=== PATIENT | male | born 1995 | race Caucasian/White ===

== ENCOUNTER 2016-11-24 14:53 | Emergency (ER) | payer OTHER ==
[2016-11-24 15:01] VITALS: RESP 18
[2016-11-24] MEDS ORDERED: SODIUM CHLORIDE 0.9% 1,000 ML IV ONE (15:30)
[2016-11-24] MEDS ORDERED: FAMOTIDINE 20 MG/2 ML VIAL IV STA (15:30)
[2016-11-24] MEDS ORDERED: ONDANSETRON 4 MG/2 ML VIAL IVP STA (15:30)
--- NOTE | 2016-11-24 15:32 | ED ---
General Adult HPI - General Chief complaint: Abdominal Pain Stated complaint: vomiting/weakness Time Seen by Provider: 11/24/16 15:13 Source: patient, family, RN notes reviewed, old records reviewed Mode of arrival: ambulatory Limitations: no limitations - History of Present Illness Initial comments: 21-year-old male presenting for epigastric abdominal pain and nausea and vomiting. He states that this is been a recurrent issue for him over the past few years. He states he has a history of hiatal hernia that has been followed by Dr. Nelson in the past. He states he was on omeprazole for few months without any significant improvement of his overall symptoms so he stopped taking this. He has had 2 separate flareups of this epigastric pain as well as the nausea and vomiting. States he is not able to tolerate food over the last couple days. He denies any fevers or chills. Denies any diarrhea. He denies any hematemesis. - Related Data Home Medications Medication Instructions Recorded Confirmed Albuterol Sulfate [Proair Hfa] 2 puff INHALATION RT-Q6H PRN 04/22/14 11/24/16 Lisinopril [Zestril] 10 mg PO DAILY 08/21/15 11/24/16 Mometasone/Formoterol [Dulera 200 2 puff INHALATION RT-TID 03/16/16 11/24/16 Mcg/5 Mcg Inhaler] Omeprazole [PriLOSEC] 20 mg PO AC-BID 03/16/16 11/24/16 Previous Rx's Medication Instructions Recorded Ondansetron [Zofran ODT] 4 mg PO Q8HR PRN #15 tab 11/24/16 Allergies Allergy/AdvReac Type Severity Reaction Status Date / Time No Known Allergies Allergy Verified 11/24/16 15:10 Review of Systems ROS Statement: Those systems with pertinent positive or pertinent negative responses have been documented in the HPI. ROS Other: All systems not noted in ROS Statement are negative. Past Medical History Past Medical History: Asthma, GERD/Reflux, Hypertension Additional Past Medical History / Comment(s): HIATAL HERNIA History of Any Multi-Drug Resistant Organisms: None Reported Past Surgical History: Adenoidectomy Past Anesthesia/Blood Transfusion Reactions: No Reported Reaction Past Psychological History: Anxiety Smoking Status: Never smoker Past Alcohol Use History: None Reported Past Drug Use History: Marijuana Additional Drug Use History / Comment(s): smokes daily General Exam - General Exam Comments Initial Comments: General: Awake and Alert. No acute distress. Does not appear acutely ill. Eyes: CEE, EOM intact. No nystagmus. No scleral icterus. HENT: Atraumatic, normocephalic. Mucous membranes moist. Trachea midline. Neck: The neck is supple, there is no tenderness or JVD. Cardiovascular: Regular rate and rhythm. No murmur, rub, or gallop is appreciated. Distal pulses intact. Respiratory: Lungs are clear to auscultation bilaterally. No wheezes, rales, rhonchi. No respiratory distress. Gastrointestinal: Soft, with mild epigastric tenderness. No rebound or guarding. Non-distended. No masses or organomegaly noted. No CVA tenderness. Musculoskeletal: No tenderness. Normal ROM. No gross deformity. No strength deficits. Neurological: A&Ox3. CN II-XII grossly intact, There are no obvious motor or sensory deficits. Coordination appears grossly intact. Speech is normal. Skin: Skin is warm and dry and no rashes or lesions are noted. Psychiatric: Cooperative, appropriate mood & affect, normal judgment. Limitations: no limitations Course Vital Signs 11/24/16 11/24/16 14:57 16:45 Temperature 97.7 F 98.9 F Pulse Rate 95 77 Respiratory 18 18 Rate Blood Pressure 153/73 140/71 O2 Sat by Pulse 97 96 Oximetry Medical Decision Making - Medical Decision Making 21-year-old male presented for epigastric pain and nausea and vomiting. Patient has history of gastritis. Patient's father Dr. Nelson in the past. Physical exam with mild epigastric tenderness but no evidence of acute peritonitis. Patient was given Zofran and Pepcid for symptomatic management. On reevaluation he states he is feeling improved. Basic lab work shows no significant findings. Discussed reassuring findings here today. Discussed need for close outpatient GI follow-up for further management. Discussed his hiatal hernia and recommend restarting his omeprazole. Was written for Zofran for symptomatic management. Discussed concerning signs and symptoms for immediate return to the ED. Patient is agreeable with plan and discharge home. - Lab Data Result diagrams: 11/24/16 15:25 11/24/16 15:25 Lab Results 11/24/16 11/24/16 Range/Units 15:25 15:25 WBC 9.5 (3.8-10.6) k/uL RBC 5.28 (4.30-5.90) m/uL Hgb 15.6 (13.0-17.5) gm/dL Hct 45.0 (39.0-53.0) % MCV 85.3 (80.0-100.0) fL MCH 29.5 (25.0-35.0) pg MCHC 34.5 (31.0-37.0) g/dL RDW 11.8 (11.5-15.5) % Plt Count 275 (150-450) k/uL Neutrophils % 71 % Lymphocytes % 21 % Monocytes % 7 % Eosinophils % 0 % Basophils % 0 % Neutrophils # 6.7 (1.3-7.7) k/uL Lymphocytes # 2.0 (1.0-4.8) k/uL Monocytes # 0.7 (0-1.0) k/uL Eosinophils # 0.0 (0-0.7) k/uL Basophils # 0.0 (0-0.2) k/uL Sodium 142 (137-145) mmol/L Potassium 4.0 (3.5-5.1) mmol/L Chloride 106 (98-107) mmol/L Carbon Dioxide 22 (22-30) mmol/L Anion Gap 14 mmol/L BUN 13 (9-20) mg/dL Creatinine 0.80 (0.66-1.25) mg/dL Est GFR (MDRD) Af Amer >60 (>60 ml/min/1.73 sqM) Est GFR (MDRD) Non-Af >60 (>60 ml/min/1.73 sqM) Glucose 102 H (74-99) mg/dL Calcium 10.3 H (8.4-10.2) mg/dL Lipase 83 (23-300) U/L Disposition Clinical Impression: Hiatal hernia, Epigastric pain, Nausea and vomiting Disposition: HOME SELF-CARE Condition: Stable Instructions: Abdominal Pain (ED), Hiatal Hernia (ED) Prescriptions: Ondansetron [Zofran ODT] 4 mg PO Q8HR PRN #15 tab PRN Reason: Nausea Referrals: Arron Ga DO [Primary Care Provider] - 1-2 days Marnie Nelson MD [STAFF PHYSICIAN] - 1-2 days Time of Disposition: 16:38
[2016-11-24 15:41] LABS: Basophils % (A) 0 %; CH 30.7; CHCM 36.1; Eosinophils % (A) 0 %; HDW 2.28; HGB 15.6 gm/dL (13.0-17.5); Luc # (Auto) 0.11; Luc % (Auto) 1; Lymphocytes % (A) 21 %; MCH 29.5 pg (25.0-35.0); MCHC 34.5 g/dL (31.0-37.0); MCV 85.3 fL (80.0-100.0); Mean Platelet Volume 7.9; Monocytes # (A) 0.7 k/uL (0-1.0); Monocytes % (A) 7 %; Neutrophils # (A) 6.7 k/uL (1.3-7.7); Neutrophils % (A) 71 %; RBC 5.28 m/uL (4.30-5.90); RDW 11.8 % (11.5-15.5); WBC 9.5 k/uL (3.8-10.6); WBC (Perox) 9.52
[2016-11-24 15:50] LABS: Anion Gap 14 mmol/L; Blood Urea Nitrogen 13 mg/dL (9-20); Calcium 10.3 mg/dL (8.4-10.2); Carbon Dioxide 22 mmol/L (22-30); Chloride 106 mmol/L (98-107); Glucose 102 mg/dL (74-99); Non-African American GFR(MDRD) >60 (>60 ml/min/1.73 sqM); Sodium 142 mmol/L (137-145)
[2016-11-24 16:46] VITALS: BP 140/71; PULSE 77; TEMP 98.9
== END 2016-11-24 16:46 | disposition home or self-care (01) ==
LOC: EC 14:53
DX: K44.9 Diaphragmatic hernia without obstruction or gangrene (principal); R11.2 Nausea with vomiting, unspecified; K21.9 Gastro-esophageal reflux disease without esophagitis; I10 Essential (primary) hypertension; J45.909 Unspecified asthma, uncomplicated; Z87.19 Personal history of other diseases of the digestive system; Z79.899 Other long term (current) drug therapy
CPT/HCPCS: 99284 ×2; 96374 ×2; 96375 ×2; 96361 ×2; 36415; 80048; 83690; 85025; J2405

== ENCOUNTER 2018-02-12 11:52 | Emergency (ER) | payer OTHER ==
[2018-02-12] MEDS ORDERED: PANTOPRAZOLE 40 MG/10 ML VIAL IVP STA (12:16)
[2018-02-12] MEDS ORDERED: ONDANSETRON 4 MG/2 ML VIAL IVP STA (12:16)
[2018-02-12] MEDS ORDERED: SODIUM CHLORIDE 0.9% 1,000 ML IV STA ×2 (12:16)
[2018-02-12] MEDS ORDERED: KETOROLAC 30 MG/ML 1 ML VIAL IVP STA (12:16)
[2018-02-12] MEDS ORDERED: LORazepam 2 MG/ML INJ IV STA (12:17)
[2018-02-12] MEDS ORDERED: MAG HYDROX/AL HYDROX/SIMETH 30 ML, HYOSCYAMINE ELIXIR 10 ML, CIMETIDINE HCL 300 MG PO STA ×3 (12:17)
--- NOTE | 2018-02-12 12:20 | ED ---
Abdominal Pain HPI - General Chief Complaint: Abdominal Pain Stated Complaint: Abd pain, vomiting Time Seen by Provider: 02/12/18 12:10 Source: patient, RN notes reviewed, old records reviewed Mode of arrival: ambulatory Limitations: no limitations - History of Present Illness Initial Comments: This patient is a 22-year-old male presents emergency Department chief complaint of anxiety and epigastric abdominal pain nausea and vomiting. Patient reports that his symptoms started 3 more frequently for the past week. He's had multiple days of a few episodes of vomiting. Patient reports this morning 7 AM on he was at work he started to have worsening nausea vomiting and then having abdominal pain. He seen his GI specialist. He has history of a hiatal hernia. He takes omeprazole daily. He also was prescribed an anxiety pill reports that that seems like it's on helping at this time either. He reports that he did not take any nausea medicine. He reports he's had normal bowel and no blood. No medical emesis. Normal bowel movements today. Normal urination. - Related Data Home Medications Medication Instructions Recorded Confirmed Albuterol Sulfate [Proair Hfa] 2 puff INHALATION RT-Q6H PRN 04/22/14 02/12/18 Lisinopril [Zestril] 10 mg PO DAILY 08/21/15 02/12/18 Mometasone/Formoterol [Dulera 200 2 puff INHALATION RT-BID 03/16/16 02/12/18 Mcg/5 Mcg Inhaler] Omeprazole [PriLOSEC] 20 mg PO DAILY 03/16/16 02/12/18 Amitriptyline HCl [Elavil] 25 mg PO HS 02/12/18 02/12/18 Previous Rx's Medication Instructions Recorded Ondansetron Odt [Zofran Odt] 4 mg PO Q8HR PRN #12 tab 02/12/18 Allergies Allergy/AdvReac Type Severity Reaction Status Date / Time No Known Allergies Allergy Verified 02/12/18 13:40 Review of Systems ROS Statement: Those systems with pertinent positive or pertinent negative responses have been documented in the HPI. ROS Other: All systems not noted in ROS Statement are negative. Past Medical History Past Medical History: Asthma, GERD/Reflux, Hypertension Additional Past Medical History / Comment(s): HIATAL HERNIA History of Any Multi-Drug Resistant Organisms: None Reported Past Surgical History: Adenoidectomy Additional Past Surgical History / Comment(s): testicular surg Past Anesthesia/Blood Transfusion Reactions: No Reported Reaction Past Psychological History: Anxiety Smoking Status: Never smoker Past Alcohol Use History: None Reported Past Drug Use History: Marijuana General Exam - General Exam Comments Initial Comments: This patient is a 22-year-old male. No acute distress. Patient does appear very anxious. Limitations: no limitations General appearance: alert, in no apparent distress, anxious Head exam: Present: atraumatic, normocephalic, normal inspection Eye exam: Present: normal appearance, PERRL, EOMI. Absent: scleral icterus, conjunctival injection, periorbital swelling ENT exam: Present: normal exam, mucous membranes moist Neck exam: Present: normal inspection. Absent: tenderness, meningismus, lymphadenopathy Respiratory exam: Present: normal lung sounds bilaterally. Absent: respiratory distress, wheezes, rales, rhonchi, stridor Cardiovascular Exam: Present: regular rate, normal rhythm, normal heart sounds. Absent: systolic murmur, diastolic murmur, rubs, gallop, clicks GI/Abdominal exam: Present: soft, tenderness (Epigastric left upper quadrant tenderness.), normal bowel sounds. Absent: distended, guarding, rebound, rigid Extremities exam: Present: normal inspection, full ROM, normal capillary refill. Absent: tenderness, pedal edema, joint swelling, calf tenderness Back exam: Present: normal inspection Neurological exam: Present: alert, oriented X3, CN II-XII intact Psychiatric exam: Present: normal affect, normal mood Skin exam: Present: warm, dry, intact, normal color. Absent: rash Course Vital Signs 02/12/18 11:58 Temperature 97.9 F Pulse Rate 84 Respiratory 18 Rate Blood Pressure 147/92 O2 Sat by Pulse 97 Oximetry - Reevaluation(s) Reevaluation #1: 02/12/18 13:57 Patient was reevaluated and resting comfortably in bed. He reports feeling better. Patient labwork was reviewed and told him that it was negative. X- rays reviewed and normal as well. Medical Decision Making - Medical Decision Making This patient is 22-year-old male with history of anxiety presents today with episodes of vomiting. He reports his been vomiting episodes for the past week. He did some epigastric tenderness. Patient's given IV fluids labwork obtained. He does appear very anxious. Given In 1 mg of Ativan. He is given GI cocktail and Protonix as well. X-ray was normal. Lab work was all normal. Discussed he needs to continue his omeprazole. I'll write the patient for Zofran for nausea. Discussed that he should follow-up with his primary care provider and GI specialist visitors symptoms are continuing to persist. Discussed me she hasn't clear liquid diet for the next 2 days. All questions answered return parameters were discussed. - Lab Data Result diagrams: 02/12/18 12:20 02/12/18 12:20 Lab Results 02/12/18 02/12/18 02/12/18 Range/Units 12:20 12:20 13:16 WBC 9.1 (3.8-10.6) k/uL RBC 5.42 (4.30-5.90) m/uL Hgb 15.9 (13.0-17.5) gm/dL Hct 44.2 (39.0-53.0) % MCV 81.5 (80.0-100.0) fL MCH 29.3 (25.0-35.0) pg MCHC 35.9 (31.0-37.0) g/dL RDW 12.1 (11.5-15.5) % Plt Count 297 (150-450) k/uL Neutrophils % 71 % Lymphocytes % 23 % Monocytes % 4 % Eosinophils % 0 % Basophils % 1 % Neutrophils # 6.4 (1.3-7.7) k/uL Lymphocytes # 2.1 (1.0-4.8) k/uL Monocytes # 0.4 (0-1.0) k/uL Eosinophils # 0.0 (0-0.7) k/uL Basophils # 0.0 (0-0.2) k/uL Sodium 144 (137-145) mmol/L Potassium 4.1 (3.5-5.1) mmol/L Chloride 106 (98-107) mmol/L Carbon Dioxide 19 L (22-30) mmol/L Anion Gap 19 mmol/L BUN 13 (9-20) mg/dL Creatinine 0.80 (0.66-1.25) mg/dL Est GFR (CKD-EPI)AfAm >90 (>60 ml/min/1.73 sqM) Est GFR (CKD-EPI)NonAf >90 (>60 ml/min/1.73 sqM) Glucose 116 H (74-99) mg/dL Calcium 11.1 H (8.4-10.2) mg/dL Total Bilirubin 0.9 (0.2-1.3) mg/dL AST 21 (17-59) U/L ALT 26 (21-72) U/L Alkaline Phosphatase 71 (38-126) U/L Total Protein 8.4 H (6.3-8.2) g/dL Albumin 5.1 H (3.5-5.0) g/dL Amylase 54 (30-110) U/L Lipase 106 (23-300) U/L Urine Color Yellow Urine Appearance Clear (Clear) Urine pH 7.5 (5.0-8.0) Ur Specific [place] 1.025 (1.001-1.035) Urine Protein Trace H (Negative) Urine Glucose (UA) Negative (Negative) Urine Ketones 3+ H (Negative) Urine Blood Negative (Negative) Urine Nitrite Negative (Negative) Urine Bilirubin Negative (Negative) Urine Urobilinogen <2.0 (<2.0) mg/dL Ur Leukocyte Esterase Negative (Negative) - Radiology Data Radiology results: report reviewed X-rays nonspecific abdomen. Disposition Clinical Impression: Gastritis, Nausea and vomiting Disposition: HOME SELF-CARE Condition: Good Instructions: Acute Nausea and Vomiting (ED) Additional Instructions: Patient advised to have a clear liquid diet for the next 2 days. Increase her fluid intake. Be sure that you follow-up with primary care provider and GI specialist. He is a nausea medicine every 8 hours as needed. Return to the emergency department if any alarming signs or symptoms occur. Prescriptions: Ondansetron Odt [Zofran Odt] 4 mg PO Q8HR PRN #12 tab PRN Reason: Nausea Referrals: Arron Ga DO [Primary Care Provider] - 1-2 days Time of Disposition: 13:58
[2018-02-12 12:36] LABS: Basophils % (A) 1 %; Eosinophils % (A) 0 %; HCT 44.2 % (39.0-53.0); HGB 15.9 gm/dL (13.0-17.5); Lymphocytes # (A) 2.1 k/uL (1.0-4.8); Lymphocytes % (A) 23 %; MCH 29.3 pg (25.0-35.0); MCHC 35.9 g/dL (31.0-37.0); MCV 81.5 fL (80.0-100.0); Mean Platelet Volume 7.2; Monocytes # (A) 0.4 k/uL (0-1.0); Monocytes % (A) 4 %; Neutrophils # (A) 6.4 k/uL (1.3-7.7); Neutrophils % (A) 71 %; Platelet Count 297 k/uL (150-450); RBC 5.42 m/uL (4.30-5.90); RDW 12.1 % (11.5-15.5); WBC 9.1 k/uL (3.8-10.6)
[2018-02-12 12:46] LABS: ALT 26 U/L (21-72); AST 21 U/L (17-59); Albumin 5.1 g/dL (3.5-5.0); Alkaline Phosphatase 71 U/L (38-126); Amylase 54 U/L (30-110); Anion Gap 19 mmol/L; Blood Urea Nitrogen 13 mg/dL (9-20); Calcium 11.1 mg/dL (8.4-10.2); Carbon Dioxide 19 mmol/L (22-30); Chloride 106 mmol/L (98-107); Glucose 116 mg/dL (74-99); Lipase 106 U/L (23-300); Potassium 4.1 mmol/L (3.5-5.1); Sodium 144 mmol/L (137-145); Total Bilirubin 0.9 mg/dL (0.2-1.3); Total Protein 8.4 g/dL (6.3-8.2)
--- NOTE | 2018-02-12 13:01 | XR ---
EXAMINATION TYPE: XR KUB DATE OF EXAM: 02/12/2018 COMPARISON: NONE HISTORY: Nausea and vomiting TECHNIQUE: One view abdominal series FINDINGS: The osseous structures are intact. The bowel gas pattern is nonspecific. Lung bases are clear. Sugg estion of a spina bifida occulta at the lumbosacral junction. IMPRESSION: 1. Nonspecific abdomen.
[2018-02-12 13:31] LABS: Appearance,Urine Clear (Clear); Bilirubin,Urine Negative (Negative); Blood,Urine Negative (Negative); Color,Urine Yellow; Glucose,Urine (UA) Negative (Negative); Ketones,Urine 3+ (Negative); Leukocyte Esterase,Urine Negative (Negative); Nitrite,Urine Negative (Negative); PH, Urine 7.5 (5.0-8.0); Protein,Urine Trace (Negative); Specific Gravity,Urine 1.025 (1.001-1.035); Urobilinogen,Urine <2.0 mg/dL (<2.0)
[2018-02-12 14:11] VITALS: BP 152/83; PULSE 85; RESP 16; TEMP 98.4
== END 2018-02-12 14:12 | disposition home or self-care (01) ==
LOC: EC 11:52
DX: K29.70 Gastritis, unspecified, without bleeding (principal); F41.9 Anxiety disorder, unspecified; K21.9 Gastro-esophageal reflux disease without esophagitis; J45.909 Unspecified asthma, uncomplicated; I10 Essential (primary) hypertension; Z79.51 Long term (current) use of inhaled steroids; Z79.899 Other long term (current) drug therapy
CPT/HCPCS: 99284; 96374; 96375 ×3; 96361; 36415; 80053; 82150; 83690; 85025; 81003; 74018; J2060; J2405; J1885; C9113

== ENCOUNTER 2020-04-22 14:11 | Emergency (ER) | payer OTHER ==
[2020-04-22] MEDS ORDERED: MAG HYDROX/AL HYDROX/SIMETH 30 ML, HYOSCYAMINE ELIXIR 10 ML, LIDOCAINE VISCOUS 2% 10 ML PO STA ×3 (14:45)
[2020-04-22] MEDS ORDERED: ONDANSETRON 4 MG/2 ML VIAL IVP STA (14:45)
[2020-04-22] MEDS ORDERED: SODIUM CHLORIDE 0.9% 1,000 ML IV STA (14:45)
[2020-04-22] MEDS ORDERED: PANTOPRAZOLE 40 MG/10 ML VIAL IVP STA (14:45)
--- NOTE | 2020-04-22 14:49 | ED ---
Abdominal Pain HPI - General Chief Complaint: Abdominal Pain Stated Complaint: Dizziness Time Seen by Provider: 04/22/20 14:35 Source: patient Mode of arrival: ambulatory Limitations: no limitations - History of Present Illness Initial Comments: Patient is a 24-year-old male presenting to the emergency Department with complaints of abdominal pain, nausea, diarrhea 4 days. Patient states he noticed nausea and diarrhea first and then started having upper abdominal cramping throughout the last few days. Patient states he has a history of GI issues and has been seeing Dr. Nelson for it. Patient states they think it may be related to stress and/or acid reflux. He used to take medication but no longer does. Patient states he has not been able to eat or drink much today and then started feeling lightheaded when he was outside today. He denies any vomiting episodes, just a lot of nausea and limited appetite. Patient also started new job tomorrow outside. Patient denies any recent fever, chills, chest pain, shortness of breath. He denies any dysuria. He states his urine has been darker than normal. He denies any further complaints at this time. Upon arrival to the ER, his vital signs are stable. - Related Data Home Medications Medication Instructions Recorded Confirmed Albuterol Sulfate [Proair Hfa] 2 puff INHALATION RT-Q6H PRN 04/22/14 04/22/20 Previous Rx's Medication Instructions Recorded Lisinopril [Zestril] 10 mg PO DAILY 30 Days #30 tab 04/22/20 Omeprazole [PriLOSEC] 20 mg PO AC-BRKFST 30 Days #30 cap 04/22/20 Ondansetron Odt [Zofran Odt] 4 mg PO Q8HR PRN #10 tab 04/22/20 Allergies Allergy/AdvReac Type Severity Reaction Status Date / Time No Known Allergies Allergy Verified 04/23/20 20:22 Review of Systems ROS Statement: Those systems with pertinent positive or pertinent negative responses have been documented in the HPI. ROS Other: All systems not noted in ROS Statement are negative. Past Medical History Past Medical History: Asthma, GERD/Reflux, Hypertension Additional Past Medical History / Comment(s): HIATAL HERNIA, History of Any Multi-Drug Resistant Organisms: None Reported Past Surgical History: Adenoidectomy Additional Past Surgical History / Comment(s): testicular surg Past Anesthesia/Blood Transfusion Reactions: No Reported Reaction Past Psychological History: Anxiety Smoking Status: Never smoker Past Alcohol Use History: None Reported Past Drug Use History: Marijuana General Exam - General Exam Comments Initial Comments: GENERAL: Well-appearing, well-nourished and in no acute distress. HEAD: Atraumatic, normocephalic. EYES: Pupils equal round and reactive to light, extraocular movements intact, sclera anicteric, conjunctiva are normal. ENT: TMs normal, nares patent, oropharynx clear without exudates. Moist mucous membranes. NECK: Normal range of motion, supple without lymphadenopathy or JVD. LUNGS: Breath sounds clear to auscultation bilaterally and equal. No wheezes rales or rhonchi. HEART: Regular rate and rhythm without murmurs, rubs or gallops. ABDOMEN: Pain with palpation epigastric area. Soft, normoactive bowel sounds. No guarding, no rebound. No masses appreciated. : Deferred EXTREMITIES: Normal range of motion, no pitting or edema. No clubbing or cyanosis. NEUROLOGICAL: Cranial nerves II through XII grossly intact. Normal speech, normal gait. PSYCH: Normal mood, normal affect. SKIN: Warm, Dry, normal turgor, no rashes or lesions noted. Limitations: no limitations Course Vital Signs 04/22/20 04/22/20 14:30 17:37 Temperature 98.9 F 98.3 F Pulse Rate 86 103 H Respiratory 18 17 Rate Blood Pressure 185/122 169/113 O2 Sat by Pulse 98 99 Oximetry Medical Decision Making - Medical Decision Making Patient is a 24-year-old male complaining of nausea, diarrhea, upper abdominal cramping 4 days. He does have a history of acid reflex and sees Dr. Nelson for this. Vitals are stable upon arrival. Pain with palpation of the epigastric area. Labs show no acute abnormalities, lactic acid is normal. KUB shows no acute process. Patient was given fluids, Protonix, Toradol, Zofran, GI cocktail reports improvement in symptoms. I discussed with patient his symptoms, also be related to anxiety. Patient is agreement with this plan of care. He will follow up with his GI doctor. Patient did have elevated blood pressure in the ER. He states he used to be on medication but stopped taking it 2 months ago. I did refill his prescription for lisinopril, as well as omeprazole and Zofran. Patient states he will start taking this medication and follow-up with his PCP. He is stable for discharge. Return parameters were discussed with the patient and he verbalized understanding. Case discussed with Dr. Wilhelm. - Lab Data Result diagrams: 04/22/20 15:00 04/22/20 15:00 Lab Results 04/22/20 04/22/20 04/22/20 Range/Units 15:00 15:00 15:00 WBC 8.1 (3.8-10.6) k/uL RBC 5.83 (4.30-5.90) m/uL Hgb 17.1 (13.0-17.5) gm/dL Hct 51.1 (39.0-53.0) % MCV 87.6 (80.0-100.0) fL MCH 29.3 (25.0-35.0) pg MCHC 33.5 (31.0-37.0) g/dL RDW 11.9 (11.5-15.5) % Plt Count 272 (150-450) k/uL Neutrophils % 53 % Lymphocytes % 36 % Monocytes % 7 % Eosinophils % 1 % Basophils % 1 % Neutrophils # 4.3 (1.3-7.7) k/uL Lymphocytes # 2.9 (1.0-4.8) k/uL Monocytes # 0.5 (0-1.0) k/uL Eosinophils # 0.1 (0-0.7) k/uL Basophils # 0.1 (0-0.2) k/uL Sodium 140 (137-145) mmol/L Potassium 4.3 (3.5-5.1) mmol/L Chloride 106 (98-107) mmol/L Carbon Dioxide 23 (22-30) mmol/L Anion Gap 11 mmol/L BUN 16 (9-20) mg/dL Creatinine 0.85 (0.66-1.25) mg/dL Est GFR (CKD-EPI)AfAm >90 (>60 ml/min/1.73 sqM) Est GFR (CKD-EPI)NonAf >90 (>60 ml/min/1.73 sqM) Glucose 99 (74-99) mg/dL Plasma Lactic Acid [place] 1.3 (0.7-2.0) mmol/L Calcium 10.3 H (8.4-10.2) mg/dL Total Bilirubin 0.9 (0.2-1.3) mg/dL AST 24 (17-59) U/L ALT 22 (4-49) U/L Alkaline Phosphatase 68 (38-126) U/L Total Protein 8.4 H (6.3-8.2) g/dL Albumin 5.0 (3.5-5.0) g/dL Disposition Clinical Impression: Abdominal pain, Dehydration Disposition: HOME SELF-CARE Condition: Stable Instructions (If sedation given, give patient instructions): Abdominal Pain (ED) Additional Instructions: Please return to the Emergency Department if symptoms worsen or any other concerns. Follow-up with Dr. Nelson, as discussed. Trial of omeprazole as well as Zofran. Prescriptions: Omeprazole [PriLOSEC] 20 mg PO AC-BRKFST 30 Days #30 cap Lisinopril [Zestril] 10 mg PO DAILY 30 Days #30 tab Ondansetron Odt [Zofran Odt] 4 mg PO Q8HR PRN #10 tab PRN Reason: Nausea Is patient prescribed a controlled substance at d/c from ED?: No Referrals: Arron Ga DO [Primary Care Provider] - 1-2 days Marnie Nelson MD [STAFF PHYSICIAN] - 1-2 days
[2020-04-22 15:16] LABS: Basophils # (A) 0.1 k/uL (0-0.2); Basophils % (A) 1 %; Eosinophils # (A) 0.1 k/uL (0-0.7); Eosinophils % (A) 1 %; HCT 51.1 % (39.0-53.0); HGB 17.1 gm/dL (13.0-17.5); Lymphocytes # (A) 2.9 k/uL (1.0-4.8); Lymphocytes % (A) 36 %; MCH 29.3 pg (25.0-35.0); MCHC 33.5 g/dL (31.0-37.0); MCV 87.6 fL (80.0-100.0); Mean Platelet Volume 7.6; Monocytes # (A) 0.5 k/uL (0-1.0); Monocytes % (A) 7 %; Neutrophils # (A) 4.3 k/uL (1.3-7.7); Neutrophils % (A) 53 %; Platelet Count 272 k/uL (150-450); RBC 5.83 m/uL (4.30-5.90); RDW 11.9 % (11.5-15.5); WBC 8.1 k/uL (3.8-10.6)
[2020-04-22 15:22] LABS: Potassium 4.3 mmol/L (3.5-5.1)
[2020-04-22 15:23] LABS: ALT 22 U/L (4-49); AST 24 U/L (17-59); African American GFR (CKD) >90 (>60 ml/min/1.73 sqM); Alkaline Phosphatase 68 U/L (38-126); Anion Gap 11 mmol/L; Blood Urea Nitrogen 16 mg/dL (9-20); Calcium 10.3 mg/dL (8.4-10.2); Carbon Dioxide 23 mmol/L (22-30); Chloride 106 mmol/L (98-107); Glucose 99 mg/dL (74-99); Non-African American GFR(CKD) >90 (>60 ml/min/1.73 sqM); Sodium 140 mmol/L (137-145); Total Bilirubin 0.9 mg/dL (0.2-1.3); Total Protein 8.4 g/dL (6.3-8.2)
--- NOTE | 2020-04-22 15:38 | XR ---
KUB HISTORY: Right-sided abdominal pain, dizziness and diarrhea KUB submitted and correlated prior KUB 02/12/2018 Lung bases are clear. There is no evident bowel obstruction or pneumoperitoneum. No pathologic calcif ication. Bones show a similar appearance. IMPRESSION: Nonobstructive bowel gas pattern.
[2020-04-22] MEDS ORDERED: KETOROLAC 30 MG/ML 1 ML VIAL IVP STA (16:00)
[2020-04-22 17:37] VITALS: BP 169/113; PULSE 103; RESP 17; TEMP 98.3
== END 2020-04-22 17:51 | disposition home or self-care (01) ==
LOC: EC 14:11
DX: E86.0 Dehydration (principal); R10.9 Unspecified abdominal pain; R11.0 Nausea; J45.909 Unspecified asthma, uncomplicated
CPT/HCPCS: 36415; 80053; 83605; 85025; 74018; 99284; 96374; 96375 ×2; 96361; J2405; J1885; C9113

== ENCOUNTER 2020-04-23 20:15 | Emergency (ER) | payer OTHER ==
[2020-04-23 20:22] VITALS: TEMP 98.7
[2020-04-23] MEDS ORDERED: LORazepam 2 MG/ML INJ IM STA (20:55)
--- NOTE | 2020-04-23 20:59 | ED ---
Recheck HPI - General Chief Complaint: Recheck/Abnormal Lab/Rx Stated Complaint: High BP Time Seen by Provider: 04/23/20 20:24 Source: patient Mode of arrival: ambulatory Limitations: no limitations - History of Present Illness Initial Comments: Patient is a 24-year-old male presenting to the emergency Department with complaints of elevated blood pressure. Patient was in the ER yesterday for complaints of dizziness and was found to have elevated blood pressure. He states he stopped taking his blood pressure medications approximately 2 months ago. Patient was given a prescription for lisinopril yesterday and did start taking it today. Patient states he also has a history of anxiety and noticed that it has been increasing over the past month. He states he has been stressing about his job and also this new job that he wants to start. Patient states he lost his father approximately one year ago and has been battling anxiety and depression. Patient denies any suicide or homicidal thoughts. He denies having headache, chest pain, shortness of breath. He denies any recent fever or chills. He has no further complaints at this time. Upon arrival to the ER, patient's blood pressure is 184/75, pulse is 108, rest of vitals normal. - Related Data Home Medications Medication Instructions Recorded Confirmed Albuterol Sulfate [Proair Hfa] 2 puff INHALATION RT-Q6H PRN 04/22/14 04/22/20 Previous Rx's Medication Instructions Recorded Lisinopril [Zestril] 10 mg PO DAILY 30 Days #30 tab 04/22/20 Omeprazole [PriLOSEC] 20 mg PO AC-BRKFST 30 Days #30 cap 04/22/20 Ondansetron Odt [Zofran Odt] 4 mg PO Q8HR PRN #10 tab 04/22/20 Allergies Allergy/AdvReac Type Severity Reaction Status Date / Time No Known Allergies Allergy Verified 04/23/20 20:22 Review of Systems ROS Statement: Those systems with pertinent positive or pertinent negative responses have been documented in the HPI. ROS Other: All systems not noted in ROS Statement are negative. Past Medical History Past Medical History: Asthma, GERD/Reflux, Hypertension Additional Past Medical History / Comment(s): HIATAL HERNIA, History of Any Multi-Drug Resistant Organisms: None Reported Past Surgical History: Adenoidectomy Additional Past Surgical History / Comment(s): testicular surg Past Anesthesia/Blood Transfusion Reactions: No Reported Reaction Past Psychological History: Anxiety Smoking Status: Never smoker Past Alcohol Use History: None Reported Past Drug Use History: Marijuana General Exam - General Exam Comments Initial Comments: GENERAL: Well-appearing, well-nourished and in no acute distress. Patient appears anx ious. HEAD: Atraumatic, normocephalic. EYES: Pupils equal round and reactive to light, extraocular movements intact, sclera anicteric, conjunctiva are normal. ENT: TMs normal, nares patent, oropharynx clear without exudates. Moist mucous membranes. NECK: Normal range of motion, supple without lymphadenopathy or JVD. LUNGS: Breath sounds clear to auscultation bilaterally and equal. No wheezes rales or rhonchi. HEART: Regular rate and rhythm without murmurs, rubs or gallops. ABDOMEN: Soft, nontender, normoactive bowel sounds. No guarding, no rebound. No masses appreciated. : Deferred EXTREMITIES: Normal range of motion, no pitting or edema. No clubbing or cyanosis. NEUROLOGICAL: Cranial nerves II through XII grossly intact. Normal speech, normal gait. PSYCH: Normal mood, normal affect, anxious. SKIN: Warm, Dry, normal turgor, no rashes or lesions noted. Limitations: no limitations Course Vital Signs 04/23/20 04/23/20 04/23/20 20:18 21:40 22:11 Temperature 98.7 F Pulse Rate 108 H 88 88 Respiratory 18 18 16 Rate Blood Pressure 184/75 167/103 157/100 O2 Sat by Pulse 99 98 98 Oximetry 04/23/20 04/23/20 23:00 23:23 Temperature 98.7 F Pulse Rate 88 88 Respiratory 16 16 Rate Blood Pressure 163/103 163/103 O2 Sat by Pulse 97 97 Oximetry Medical Decision Making - Medical Decision Making Patient is a 24-year-old male presenting with hypertension, anxiety. He denies any suicidal or homicidal thoughts. He used to be on lisinopril and stopped taking it 2 months ago. Patient was in yesterday for dizziness and I did give him a prescription to restart his lisinopril. He was supposed to follow up with his PCP. Patient presented today because he took his blood pressure at home and it was still high and then started having anxiety from this. Patient's exam today is unremarkable. Patient denies having headache, chest pain, shortness of breath, blurry vision. Patient was given 1 g of Ativan as well as clindamycin in the ER. Patient's blood pressure did improve. He was also given information on counselors. He is stable for discharge at this time. He has remained asymptomatic in the ER. He will follow up with his PCP in 1-3 days. He will continue with his BP medications. Patient is agreeable with this plan of care. Return parameters were discussed with the patient and he verbalized understanding. Disposition Clinical Impression: Hypertension, Anxiety Disposition: HOME SELF-CARE Condition: Stable Instructions (If sedation given, give patient instructions): Hypertension (ED) Additional Instructions: Please return to the Emergency Department if symptoms worsen or any other concerns. Take medications as prescribed. Follow-up with PCP. Is patient prescribed a controlled substance at d/c from ED?: No Referrals: Arron Ga DO [Primary Care Provider] - 1-2 days
[2020-04-23 21:40] VITALS: PULSE 88
[2020-04-23 22:11] VITALS: RESP 16
[2020-04-23] MEDS ORDERED: cloNIDine HCL 0.1 MG TAB PO STA (22:17)
[2020-04-23 23:01] VITALS: BP 163/103
== END 2020-04-23 23:24 | disposition home or self-care (01) ==
LOC: EC 20:15
DX: I10 Essential (primary) hypertension (principal); F41.9 Anxiety disorder, unspecified; F43.9 Reaction to severe stress, unspecified; J45.909 Unspecified asthma, uncomplicated; Z79.899 Other long term (current) drug therapy
CPT/HCPCS: 99283; 96372; J2060

== ENCOUNTER 2021-01-20 07:01 | Observation (INO) | payer BC, OTHER ==
[2021-01-20] MEDS ORDERED: ONDANSETRON 4 MG/2 ML VIAL IVP STA (07:36)
[2021-01-20] MEDS ORDERED: SODIUM CHLORIDE 0.9% 1,000 ML IV STA (07:36)
[2021-01-20] MEDS ORDERED: FAMOTIDINE 20 MG/2 ML VIAL IV STA (07:37)
[2021-01-20] MEDS ORDERED: diphenhydrAMINE 50 MG/ML 1 ML VIAL IVP STA (07:37)
[2021-01-20 08:18] LABS: Basophils % (A) 0 %; Eosinophils # (A) 0.1 k/uL (0-0.7); Eosinophils % (A) 1 %; HCT 45.7 % (39.0-53.0); HGB 15.7 gm/dL (13.0-17.5); Lymphocytes # (A) 1.9 k/uL (1.0-4.8); Lymphocytes % (A) 12 %; MCHC 34.4 g/dL (31.0-37.0); MCV 87.2 fL (80.0-100.0); Monocytes % (A) 6 %; Neutrophils # (A) 12.3 k/uL (1.3-7.7); Neutrophils % (A) 80 %; Platelet Count 263 k/uL (150-450); RBC 5.24 m/uL (4.30-5.90); WBC 15.4 k/uL (3.8-10.6)
--- NOTE | 2021-01-20 08:19 | ED ---
Nausea/Vomiting/Diarrhea HPI - General Chief complaint: Nausea/Vomiting/Diarrhea Stated complaint: nausea, SOB, dizziness Time Seen by Provider: 01/20/21 07:13 Source: patient Mode of arrival: ambulatory Limitations: no limitations - History of Present Illness Initial comments: 25-year-old male patient presents to the emergency department today for evalu ation of nausea, vomiting, fever. Patient has been sick since Monday. Unable to keep down any food or fluids for the last 24 hours. Patient reports streaking of blood in one episode of vomiting today. States temperature was as high as 102F on Monday. Last bowel movement was yesterday. Has not taken any medication for his symptoms. Denies history of abdominal surgery. Patient has had issues with nausea and vomiting in the past and is awaiting appointment for upper GI and colonoscopy. Denies any recent travel or sick contacts. Patient denies any recent rash, cough, shortness of breath, chest pain, back pain, numbness, tingling, dizziness, weakness, hematuria, dysuria, urinary urgency, urinary frequency, headache, visual changes, or any other complaints. - Related Data Home Medications Medication Instructions Recorded Confirmed Sertraline [Zoloft] 100 mg PO DAILY 01/20/21 01/20/21 hydrOXYzine HCL 25 mg PO TID PRN 01/20/21 01/20/21 lisinopriL 40 mg PO DAILY 01/20/21 01/20/21 Allergies Allergy/AdvReac Type Severity Reaction Status Date / Time No Known Allergies Allergy Verified 01/20/21 08:36 Review of Systems ROS Statement: Those systems with pertinent positive or pertinent negative responses have been documented in the HPI. ROS Other: All systems not noted in ROS Statement are negative. Past Medical History Past Medical History: Asthma, GERD/Reflux, Hypertension Additional Past Medical History / Comment(s): HIATAL HERNIA, History of Any Multi-Drug Resistant Organisms: None Reported Past Surgical History: Adenoidectomy Additional Past Surgical History / Comment(s): testicular surg Past Anesthesia/Blood Transfusion Reactions: No Reported Reaction Past Psychological History: Anxiety Smoking Status: Never smoker Past Alcohol Use History: None Reported Past Drug Use History: Marijuana General Exam Limitations: no limitations General appearance: alert, in no apparent distress, other (Physical well- developed, well-nourished adult male patient in no acute distress. Vital signs upon presentation are pulse 69, respirations 18, blood pressure 166/108, pulse ox 96% on room air.) Eye exam: Present: normal appearance, PERRL, EOMI. Absent: scleral icterus, conjunctival injection, periorbital swelling ENT exam: Present: normal exam, normal oropharynx, mucous membranes moist Respiratory exam: Present: normal lung sounds bilaterally. Absent: respiratory distress, wheezes, rales, rhonchi, stridor Cardiovascular Exam: Present: regular rate, normal rhythm, normal heart sounds. Absent: systolic murmur, diastolic murmur, rubs, gallop, clicks GI/Abdominal exam: Present: soft, normal bowel sounds. Absent: distended, tenderness, guarding, rebound, rigid Neurological exam: Present: alert, oriented X3, CN II-XII intact Psychiatric exam: Present: normal affect, normal mood Skin exam: Present: warm, dry, intact, pallor. Absent: rash Course Vital Signs 01/20/21 01/20/21 01/20/21 07:07 07:53 08:30 Temperature 97.9 F Pulse Rate 69 88 85 Respiratory 18 18 18 Rate Blood Pressure 166/108 138/82 129/100 O2 Sat by Pulse 96 100 100 Oximetry Medical Decision Making - Medical Decision Making 25-year-old male patient presents to the emergency department today with vomiti ng for the last 2 days. Physical examination did reveal some mild midepigastric tenderness. Labs reviewed and did reveal elevated white blood cell count at 15.4, carbon dioxide 16, blood sugar 207, lactic 4.3. Acetone negative. No previous diagnosis of diabetes. Patient was given IV fluids, IV doses of nausea medication. Upon reevaluation patient still reports extreme nausea and is continuing to have vomiting. Case was discussed with Dr. Cadena who agrees to admission. Requests HgbA1C, clear liquid diet, and IV fluids. I did discuss results with patient and mother. They are agreeable with this plan. Case discussed with my attending Dr. Flynn. - Lab Data Result diagrams: 01/20/21 07:56 01/20/21 07:56 Lab Results 01/20/21 01/20/21 01/20/21 Range/Units 07:56 07:56 07:56 WBC 15.4 H (3.8-10.6) k/uL RBC 5.24 (4.30-5.90) m/uL Hgb 15.7 (13.0-17.5) gm/dL Hct 45.7 (39.0-53.0) % MCV 87.2 (80.0-100.0) fL MCH 30.0 (25.0-35.0) pg MCHC 34.4 (31.0-37.0) g/dL RDW 12.0 (11.5-15.5) % Plt Count 263 (150-450) k/uL MPV 8.0 Neutrophils % 80 % Lymphocytes % 12 % Monocytes % 6 % Eosinophils % 1 % Basophils % 0 % Neutrophils # 12.3 H (1.3-7.7) k/uL Lymphocytes # 1.9 (1.0-4.8) k/uL Monocytes # 1.0 (0-1.0) k/uL Eosinophils # 0.1 (0-0.7) k/uL Basophils # 0.0 (0-0.2) k/uL Sodium 138 (137-145) mmol/L Potassium 4.5 (3.5-5.1) mmol/L Chloride 108 H (98-107) mmol/L Carbon Dioxide 16 L (22-30) mmol/L Anion Gap 14 mmol/L BUN 15 (9-20) mg/dL Creatinine 0.76 (0.66-1.25) mg/dL Est GFR (CKD-EPI)AfAm >90 (>60 ml/min/1.73 sqM) Est GFR (CKD-EPI)NonAf >90 (>60 ml/min/1.73 sqM) Glucose 207 H (74-99) mg/dL Lactic Ac Sepsis Rflx Plasma Lactic Acid Young 4.3 H* (0.7-2.0) mmol/L Calcium 9.9 (8.4-10.2) mg/dL Total Bilirubin 0.6 (0.2-1.3) mg/dL AST 27 (17-59) U/L ALT 23 (4-49) U/L Alkaline Phosphatase 80 (38-126) U/L Total Protein 7.7 (6.3-8.2) g/dL Albumin 4.5 (3.5-5.0) g/dL Lipase 127 (23-300) U/L Acetone, Qual (Negative) Coronavirus (PCR) (Not Detectd) 01/20/21 01/20/21 01/20/21 Range/Units 07:56 07:56 08:35 WBC (3.8-10.6) k/uL RBC (4.30-5.90) m/uL Hgb (13.0-17.5) gm/dL Hct (39.0-53.0) % MCV (80.0-100.0) fL MCH (25.0-35.0) pg MCHC (31.0-37.0) g/dL RDW (11.5-15.5) % Plt Count (150-450) k/uL MPV Neutrophils % % Lymphocytes % % Monocytes % % Eosinophils % % Basophils % % Neutrophils # (1.3-7.7) k/uL Lymphocytes # (1.0-4.8) k/uL Monocytes # (0-1.0) k/uL Eosinophils # (0-0.7) k/uL Basophils # (0-0.2) k/uL Sodium (137-145) mmol/L Potassium (3.5-5.1) mmol/L Chloride (98-107) mmol/L Carbon Dioxide (22-30) mmol/L Anion Gap mmol/L BUN (9-20) mg/dL Creatinine (0.66-1.25) mg/dL Est GFR (CKD-EPI)AfAm (>60 ml/min/1.73 sqM) Est GFR (CKD-EPI)NonAf (>60 ml/min/1.73 sqM) Glucose (74-99) mg/dL Lactic Ac Sepsis Rflx Y Plasma Lactic Acid Young (0.7-2.0) mmol/L Calcium (8.4-10.2) mg/dL Total Bilirubin (0.2-1.3) mg/dL AST (17-59) U/L ALT (4-49) U/L Alkaline Phosphatase (38-126) U/L Total Protein (6.3-8.2) g/dL Albumin (3.5-5.0) g/dL Lipase (23-300) U/L Acetone, Qual Negative (Negative) Coronavirus (PCR) Not Detected (Not Detectd) Disposition Clinical Impression: Intractable vomiting, Hyperglycemia Disposition: ADMITTED IP TO THIS HOSP Condition: Serious Referrals: Arron Ga DO [Primary Care Provider] - 1-2 days Decision to Admit Reason: Admit from EC Decision Date: 01/20/21 Decision Time: 11:09
[2021-01-20 08:33] LABS: ALT 23 U/L (4-49); AST 27 U/L (17-59); African American GFR (CKD) >90 (>60 ml/min/1.73 sqM); Albumin 4.5 g/dL (3.5-5.0); Alkaline Phosphatase 80 U/L (38-126); Anion Gap 14 mmol/L; Blood Urea Nitrogen 15 mg/dL (9-20); Calcium 9.9 mg/dL (8.4-10.2); Carbon Dioxide 16 mmol/L (22-30); Chloride 108 mmol/L (98-107); Glucose 207 mg/dL (74-99); Lipase 127 U/L (23-300); Non-African American GFR(CKD) >90 (>60 ml/min/1.73 sqM); Potassium 4.5 mmol/L (3.5-5.1); Sodium 138 mmol/L (137-145); Total Bilirubin 0.6 mg/dL (0.2-1.3); Total Protein 7.7 g/dL (6.3-8.2)
[2021-01-20] MEDS ORDERED: MORPHINE SULFATE 2 MG/ML SYRINGE IVP STA (09:09)
[2021-01-20] MEDS ORDERED: METOCLOPRAMIDE 5 MG/ML 2 ML VIAL IVP STA (09:37)
[2021-01-20] MEDS ORDERED: SODIUM CHLORIDE 0.9% 1,000 ML IV ONE (09:37)
[2021-01-20 10:39] LABS: Appearance,Urine Clear (Clear); Bilirubin,Urine Negative (Negative); Blood,Urine Negative (Negative); Color,Urine Yellow; Glucose,Urine (UA) 3+ (Negative); Leukocyte Esterase,Urine Negative (Negative); Nitrite,Urine Negative (Negative); PH, Urine 6.5 (5.0-8.0); Protein,Urine Trace (Negative); Specific Gravity,Urine 1.033 (1.001-1.035)
[2021-01-20] MEDS ORDERED: ONDANSETRON 4 MG/2 ML VIAL IVP PRN (11:06)
[2021-01-20] MEDS ORDERED: NALOXONE 0.4 MG/ML 1 ML VIAL IV PRN (11:06)
[2021-01-20 11:23] LABS: Ketones,Urine 2+ (Negative)
[2021-01-20] MEDS: SODIUM CHLORIDE 0.9% 1,000 ML IV SCH ×2 (11:56→23:12)
[2021-01-20 14:02] LABS: Glucose,Whole Blood 112 mg/dL (75-99)
[2021-01-20] MEDS ORDERED: hydrOXYzine HCL 25 MG TAB PO PRN (15:45)
[2021-01-20] MEDS ORDERED: ACETAMINOPHEN TAB 325 MG TAB PO PRN (15:46)
[2021-01-20 18:07] LABS: Glucose,Whole Blood 91 mg/dL (75-99)
[2021-01-20 21:19] LABS: Glucose,Whole Blood 90 mg/dL (75-99)
--- NOTE | 2021-01-20 21:57 | P.HPIM ---
History of Present Illness H&P Date: 01/20/21 Chief Complaint: Epigastric pain History of presenting complaint: This is a 25-year-old patient of Dr. Yolanda Ga. Chronic stable medical conditions include asthma, GERD, hypertension diagnosed around the age of 15, hiatal hernia diagnosed with EGD at age of 17 [address] Nora Nelson and was found to be small. And also patient is on Zoloft anxiety. Patient around 4:00 this morning started having increasing nausea and epigastric pain. No fever no chills. Pain control rather severe. Decided to come in. No change in bowel pattern. No radiation. Review of systems: GEN.: Tired EYES: None HEENT: None NECK: None RESPIRATORY: None CARDIOVASCULAR: None GASTROINTESTINAL: As above GENITOURINARY: None MUSCULOSKELETAL: None LYMPHATICS: None HEMATOLOGICAL: None PSYCHIATRY: None NEUROLOGICAL: None Past medical history to include: Asthma, GERD, hypertension, hiatal hernia, anxiety Social history: Does not smoke or drink Cold. Lives with his mother. Works at [employer] Family history: Reviewed, noncontributory to presentation Physical examination: VITAL SIGNS: 97.9, 85, 18, 1 29 x 100, 100% on room air GENERAL: [BMI 24.1, laying in bed, awake. EYES: [Pupils equal. Conjunctiva edmar]l. HEENT: [External appearance of nose and ears normal, oral cavity grossly edmar l]. NECK: [JVD not raised; masses not palpable]. HEART: [First and second heart sounds are normal; no edema]. LUNGS:[ Respiratory rate normal; clear to auscultation]. ABDOMEN: [Soft, epigastric tenderness, no guarding rigidity, liver spleen not palpable, no masses palpable]. PSYCH: [Alert and oriented x3; mood and affect edmar]l. NEUROLOGICAL: [Cranial nerves grossly intact; no facial asymmetry, power and sensation grossly intact]. LYMPHATICS: [No lymph nodes palpable in the axilla and neck] INVESTIGATIONS, reviewed in the clinical context: WBC 15.4 hemoglobin 13.7 platelets 263 potassium 4.5 creatinine 0.76 Lactic acid 4.3 AST 27 ALT 23 lipase 127 Serum acetone negative Coronavirus [PCR]-not detected Assessment and plan: -This is a pleasant gentleman around 4:00 this morning woke up with nausea increasing of epigastric pain. Does not radiation. On examination there is no guarding rigidity. There has been no fever no chills. Wondering of that is peptic ulcer disease. Patient's had some reflux symptoms. We'll put the patient on PPI. Clear liquid consulted GI. With a view to possible endoscopy. -Intermittent asthma continue albuterol when necessary -Essential hypertension on lisinopril -Anxiety not otherwise specified continue with Zoloft Care was discussed with the patient questions answered. Past Medical History Past Medical History: Asthma, GERD/Reflux, Hypertension Additional Past Medical History / Comment(s): HIATAL HERNIA, History of Any Multi-Drug Resistant Organisms: None Reported Past Surgical History: Adenoidectomy Additional Past Surgical History / Comment(s): testicular surg Past Anesthesia/Blood Transfusion Reactions: No Reported Reaction Additional Past Anesthesia/Blood Transfusion Reaction / Comment(s): never received blood in the past Past Psychological History: Anxiety Smoking Status: Never smoker Past Alcohol Use History: None Reported Past Drug Use History: Marijuana Additional Drug Use History / Comment(s): smokes daily Medications and Allergies Home Medications Medication Instructions Recorded Confirmed Type Sertraline [Zoloft] 100 mg PO DAILY 01/20/21 01/20/21 History hydrOXYzine HCL 25 mg PO TID PRN 01/20/21 01/20/21 History lisinopriL 40 mg PO DAILY 01/20/21 01/20/21 History Allergies Allergy/AdvReac Type Severity Reaction Status Date / Time No Known Allergies Allergy Verified 01/20/21 08:36 Physical Exam Vitals: Vital Signs Temp Pulse Pulse Resp BP BP Pulse Ox 01/20/21 19:43 98.1 F 79 16 121/66 99 01/20/21 14:45 98.2 F 79 18 116/75 99 01/20/21 14:02 98.9 F 80 18 122/83 99 01/20/21 11:57 109 H 18 121/92 98 01/20/21 08:30 97.9 F 85 18 129/100 100 01/20/21 07:53 88 18 138/82 100 01/20/21 07:07 69 18 166/108 96 Intake and Output 01/20/21 01/20/21 01/20/21 06:59 14:59 22:59 Intake Total 600 Balance 600 Intake: Oral 600 Other: Weight 80.739 kg Results CBC & Chem 7: 01/20/21 07:56 03/10/21 07:56 Labs: Abnormal Lab Results - Last 24 Hours (Table) 01/20/21 01/20/21 01/20/21 Range/Units 07:56 07:56 07:56 WBC 15.4 H (3.8-10.6) k/uL Neutrophils # 12.3 H (1.3-7.7) k/uL Chloride 108 H (98-107) mmol/L Carbon Dioxide 16 L (22-30) mmol/L Glucose 207 H (74-99) mg/dL POC Glucose (mg/dL) (75-99) mg/dL Plasma Lactic Acid Young (0.7-2.0) mmol/L Urine Protein Trace H (Negative) Urine Glucose (UA) 3+ H (Negative) Urine Ketones 2+ H (Negative) 01/20/21 01/20/21 Range/Units 07:56 14:00 WBC (3.8-10.6) k/uL Neutrophils # (1.3-7.7) k/uL Chloride (98-107) mmol/L Carbon Dioxide (22-30) mmol/L Glucose (74-99) mg/dL POC Glucose (mg/dL) 112 H (75-99) mg/dL Plasma Lactic Acid Young 4.3 H* (0.7-2.0) mmol/L Urine Protein (Negative) Urine Glucose (UA) (Negative) Urine Ketones (Negative) Thrombosis Risk Factor Assmnt - Choose All That Apply Any of the Below Risk Factors Present?: No Other Risk Factors: No Thrombosis Risk Factor Assessment Level: Very Low Risk
[2021-01-20] MEDS ORDERED: PANTOPRAZOLE 40 MG/10 ML VIAL IVP SCH (22:00)
[2021-01-20] MEDS: PANTOPRAZOLE 40 MG/10 ML VIAL IVP SCH (23:12)
[2021-01-20] MEDS: ENOXAPARIN 40 MG/0.4 ML SYRINGE SQ SCH (23:12)
[2021-01-20 23:49] LABS: Hemoglobin A1C 4.9 % (4.0-6.0)
[2021-01-21 06:45] LABS: Basophils % (A) 0 %; Eosinophils # (A) 0.1 k/uL (0-0.7); Eosinophils % (A) 1 %; HCT 39.9 % (39.0-53.0); Lymphocytes # (A) 2.6 k/uL (1.0-4.8); Lymphocytes % (A) 26 %; MCH 30.8 pg (25.0-35.0); MCHC 35.1 g/dL (31.0-37.0); MCV 87.7 fL (80.0-100.0); Mean Platelet Volume 7.8; Monocytes # (A) 0.9 k/uL (0-1.0); Monocytes % (A) 9 %; Neutrophils # (A) 6.2 k/uL (1.3-7.7); Neutrophils % (A) 62 %; Platelet Count 195 k/uL (150-450); RBC 4.55 m/uL (4.30-5.90); RDW 12.1 % (11.5-15.5)
[2021-01-21 07:07] VITALS: BP 116/75; PULSE 93; RESP 18; TEMP 98
[2021-01-21 07:55] LABS: Glucose,Whole Blood 92 mg/dL (75-99)
[2021-01-21] MEDS: PANTOPRAZOLE 40 MG/10 ML VIAL IVP SCH (08:37)
[2021-01-21] MEDS: ENOXAPARIN 40 MG/0.4 ML SYRINGE SQ SCH (08:39)
--- NOTE | 2021-01-21 08:40 | US ---
EXAMINATION TYPE: US abdomen limited DATE OF EXAM: 01/21/2021 COMPARISON: US CLINICAL HISTORY: Epigastric pain. Epigastric pain, nausea EXAM MEASUREMENTS: Liver Length: 13.8 cm Gallbladder Wall: 0.2 cm CBD: 0.3 cm Right Kidney: 10.6 x 4.6 x 5.3 cm Pancreas: body wnl, head and tail gassed out Liver: Visualized portions appeared wnl Gallbladder: wnl Evidence for sonographic Altamirano's sign: No CBD: wnl Right Kidney: wnl, lower pole gassed out IMPRESSION: 1. No acute process as visualized.
[2021-01-21] MEDS ORDERED: SERTRALINE 100 MG TAB PO SCH (09:00)
[2021-01-21] MEDS ORDERED: FAMOTIDINE 20 MG/2 ML VIAL IV SCH (09:00)
[2021-01-21] MEDS ORDERED: lisinopriL 20 MG TAB PO SCH (09:00)
[2021-01-21 09:45] LABS: African American GFR (CKD) 143.9 (60.0-200.0); Albumin 3.8 g/dL (3.80-4.90); Albumin/Globulin Ratio 1.9 (1.60-3.17); Anion Gap 5.6 mmol/L (4.00-12.00); BUN/Creat Ratio 12.5 Ratio (12.00-20.00); Carbon Dioxide 24.4 mmol/L (21.6-31.8); Non-African American GFR(CKD) 124.2 (60.0-200.0); Potassium 4.5 mmol/L (3.5-5.5); Total Bilirubin 0.4 mg/dL (0.3-1.2); Total Protein 5.8 g/dL (6.2-8.2)
--- NOTE | 2021-01-22 18:50 | P.DS ---
Providers Date of admission: 01/20/21 11:25 Expected date of discharge: 01/21/21 Attending physician: Nakul Cadena Consults: 01/20/21 21:50 Consult Physician Routine Consulting Provider: Neto Nails Reason/Comments: Epigastric pain Do you want consulting provider notified?: Yes Primary care physician: Arron Ga [facility] Course: Chief Complaint: Epigastric pain History of presenting complaint: This is a 25-year-old patient of Dr. Yolanda Ga. Chronic stable medical conditions include asthma, GERD, hypertension diagnosed around the age of 15, hiatal hernia diagnosed with EGD at age of 17 [address] Nora Nelson and was found to be small. And also patient is on Zoloft anxiety. Patient around 4:00 this morning started having increasing nausea and epigastric pain. No fever no chills. Pain control rather severe. Decided to come in. No change in bowel pattern. No radiation. Patient is felt to have possible underlying gastritis/peptic ulcer disease. Put on clear liquid diet and PPI. Today-feeling better. Decreased pain. No nausea vomiting. Tolerating a liquid diet. Very keen to go home. I did speak with SAM Alexander practitioner from GI. HER discharge the patient. arrange for EGD as outpatient. Care was discussed with the patient. Told to return to the ER if pain is to get worse. Patient is very keen to go home. Being discharged on Prilosec Consultation: Dr. Rose from GI Past medical history to include: Asthma, GERD, hypertension, hiatal hernia, anxiety Social history: Does not smoke or drink Cold. Lives with his mother. Works at [employer] Family history: Reviewed, noncontributory to presentation Physical examination: VITAL SIGNS: 98, 93, 18, 116/75, 2% room air GENERAL: [BMI 24.1, laying in bed, awake. EYES: [Pupils equal. Conjunctiva edmar]l. HEENT: [External appearance of nose and ears normal, oral cavity grossly normal]. NECK: [JVD not raised; masses not palpable]. HEART: [First and second heart sounds are normal; no edema]. LUNGS:[ Respiratory rate normal; clear to auscultation]. ABDOMEN: [Soft, much improved epigastric tenderness, no guarding rigidity, liver spleen not palpable, no masses palpable]. PSYCH: [Alert and oriented x3; mood and affect edmar]l. INVESTIGATIONS, reviewed in the clinical context: January 21: WBC 10 hemoglobin 14 potassium 4.5 creatinine 0.8 WBC 15.4 hemoglobin 13.7 platelets 263 potassium 4.5 creatinine 0.76 Lactic acid 4.3 AST 27 ALT 23 lipase 127 Serum acetone negative Coronavirus [PCR]-not detected Assessment and plan: -Possible peptic ulcer disease versus acute gastritis. -Intermittent asthma continue albuterol when necessary -Essential hypertension on lisinopril -Anxiety not otherwise specified continue with Zoloft Disposition: Home Patient Condition at Discharge: Stable Plan - Discharge Summary Discharge Rx Participant: No New Discharge Prescriptions: New Omeprazole [PriLOSEC] 20 mg PO AC-BID #60 cap Continue lisinopriL 40 mg PO DAILY hydrOXYzine HCL 25 mg PO TID PRN PRN Reason: Anxiety Sertraline [Zoloft] 100 mg PO DAILY Discharge Medication List Sertraline [Zoloft] 100 mg PO DAILY 01/20/21 [History] hydrOXYzine HCL 25 mg PO TID PRN 01/20/21 [History] lisinopriL 40 mg PO DAILY 01/20/21 [History] Omeprazole [PriLOSEC] 20 mg PO AC-BID #60 cap 01/21/21 [Rx] Follow up Appointment(s)/Referral(s): Arron Ga DO [Primary Care Provider] - 01/27/21 10:30 am Neto Nails MD [STAFF PHYSICIAN] - 01/28/21 (FOR EGD/COLONOSCOPY WITH DR NAILS) Activity/Diet/Wound Care/Special Instructions: schedule OP EGD with dr nails soft bland diet
== END 2021-01-21 11:03 ==
LOC: EC 07:01 → 6NMEDSUR 11:25
PROVIDERS: ADMIT Hospitalist; ATTEND Hospitalist
DX: R11.2 Nausea with vomiting, unspecified (principal); R10.13 Epigastric pain; K21.9 Gastro-esophageal reflux disease without esophagitis; K44.9 Diaphragmatic hernia without obstruction or gangrene; I10 Essential (primary) hypertension; F41.9 Anxiety disorder, unspecified; J45.20 Mild intermittent asthma, uncomplicated; Z79.51 Long term (current) use of inhaled steroids; Z79.899 Other long term (current) drug therapy; Z20.822 Contact with and (suspected) exposure to COVID-19; Z90.89 Acquired absence of other organs
CPT/HCPCS: 96376; 96372 ×2; 96375 ×2; 96361; 96374; 99284; 36415; 80053 ×2; 82009; 83605; 83690; 85025 ×2; 81003; 83036; 87635; 76705; G0378 ×2; J1200; J2765; J2405; J1650 ×2; J2270; C9113 ×2

== ENCOUNTER 2021-01-28 09:24 | Day surgery (SDC) | payer BC, OTHER ==
[2021-01-26 16:05] VITALS: BMI 24.8
[~2021-01-28 09:24] MED LIST: LACTATED RINGERS 1,000 ML IV SCH
[2021-01-28 10:02] VITALS: TEMP 98.1
[2021-01-28] MEDS ORDERED: PROPOFOL 10 MG/ML 20 ML VIAL IV ONE (11:04)
[2021-01-28] MEDS ORDERED: GLYCOPYRROLATE 0.2 MG/ML 2 ML VIAL ONE (11:04)
[2021-01-28] MEDS ORDERED: KETAMINE 10 MG/ML 20 ML VIAL ONE (11:04)
[2021-01-28] MEDS ORDERED: MIDAZOLAM 2 MG/2 ML VIAL ONE (11:04)
[2021-01-28] MEDS ORDERED: LIDOCAINE 1% INJ 10MG/ML (20 ML MDV) ONE (11:04)
[2021-01-28] MEDS ORDERED: LACTATED RINGERS 1,000 ML IV ONE (11:24)
[2021-01-28 11:26] VITALS: PULSE 83
--- NOTE | 2021-01-28 11:30 | P.PCN ---
Date of Procedure: 01/28/21 Description of Procedure: BRIEF HISTORY: Patient is a 25-year-old male presenting for evaluation of symptoms of family history of esophageal cancer, nausea and vomiting with esophagogastroduodenoscopy. Long-standing history of upper GI issues. Last EGD in 2013 significant for small hiatal hernia with mild antral gastritis. PROCEDURE PERFORMED: Esophagogastroduodenoscopy with biopsy. PREOPERATIVE DIAGNOSIS: Family history of esophageal cancer, nausea and vomiting. ESTIMATED BLOOD LOSS: Minimal. IV sedation per anesthesia. PROCEDURE: After informed consent was obtained, the patient was brought into the endoscopy unit. IV sedation was administered by Anesthesia under continuous monitoring. Initially the Olympus GIF-190 video endoscope was inserted into the mouth. Esophagus intubated without any difficulty. It was gradually advanced into the stomach and duodenum and carefully examined. The bulb and the second part of the duodenum appeared normal, except for some mild punctate erythema suggestive of mild duodenitis with biopsies taken. The scope at this time was withdrawn to the stomach, adequately insufflated with air, and upon careful examination, mucosa of the antrum, body, cardia and the fundus appeared normal, except for some mild punctate erythema in the antrum and body suggestive of mild gastritis with biopsies taken. The scope was then withdrawn into the esophagus. The GE junction was located at 39 cm from the incisors and biopsied. Small 1 cm hiatal hernia noted. The esophagus appeared normal. There were no erosions or ulcerations seen and the patient tolerated the procedure well. IMPRESSION: 1. Mild gastritis. 2. Mild duodenitis. 3. Small hiatal hernia. 4. Biopsies of the duodenum, antrum body and GE junction. RECOMMENDATIONS: The findings of this examination were discussed with the patient and his family. Okay to resume diet. Okay to resume medications. Await pathology from biopsies. Patient may benefit from prolonged abstinence from marijuana use to rule out cannabinoid hyperemesis syndrome.
[2021-01-28 11:59] VITALS: BP 146/97; RESP 16
== END 2021-01-28 12:08 | disposition home or self-care (01) ==
LOC: ORWHC2ENDO 09:24
PROVIDERS: ATTEND Internal Medicine
DX: K29.50 Unspecified chronic gastritis without bleeding (principal); K29.80 Duodenitis without bleeding; K44.9 Diaphragmatic hernia without obstruction or gangrene; Z80.0 Family history of malignant neoplasm of digestive organs
CPT/HCPCS: 88305; 43239; J2250; J2001; J2704

== ENCOUNTER 2021-02-05 16:03 | Emergency (ER) | payer BC, OTHER ==
[2021-02-05] MEDS ORDERED: ONDANSETRON 4 MG/2 ML VIAL IVP STA (16:18)
[2021-02-05] MEDS ORDERED: SODIUM CHLORIDE 0.9% 1,000 ML IV STA (16:18)
--- NOTE | 2021-02-05 16:22 | ED ---
Nausea/Vomiting/Diarrhea HPI - General Chief complaint: Nausea/Vomiting/Diarrhea Stated complaint: Abd Pain/Vomitting Time Seen by Provider: 02/05/21 16:12 Source: patient, RN notes reviewed Mode of arrival: ambulatory Limitations: no limitations - History of Present Illness Initial comments: Patient's is a 25-year-old male that presents to the emergency department with nausea and vomiting for one day. He notes that he has been emergency department many times for same issue and nothing is ever found wrong. He recently had an EGD which showed mild irritation of the stomach and duodenum. He notes that he just feels dehydrated and needs some IV fluids with some nausea medication. He notes every time he tries to take a drink of water or any liquid or tobacco immediately. She denied any pain or other complaints. He was sitting up in bed with a basin. He noted that he did recently drink some Pedialyte and has been throwing that up. She denied any chest pain shortness of breath headache diarrhea constipation fever fatigue chills. - Related Data Home Medications Medication Instructions Recorded Confirmed Sertraline [Zoloft] 100 mg PO DAILY 01/20/21 01/26/21 hydrOXYzine HCL 25 mg PO TID PRN 01/20/21 01/26/21 lisinopriL 40 mg PO DAILY 01/20/21 01/26/21 Previous Rx's Medication Instructions Recorded Omeprazole [PriLOSEC] 20 mg PO AC-BID #60 cap 01/21/21 Allergies Allergy/AdvReac Type Severity Reaction Status Date / Time adhesive tape AdvReac Rash/Hives Verified 02/05/21 16:08 Review of Systems ROS Statement: Those systems with pertinent positive or pertinent negative responses have been documented in the HPI. ROS Other: All systems not noted in ROS Statement are negative. Past Medical History Past Medical History: Asthma, GERD/Reflux, Hypertension Additional Past Medical History / Comment(s): HIATAL HERNIA, inpt 01/20-01/21/21 for vomiting and elevated bs History of Any Multi-Drug Resistant Organisms: None Reported Past Surgical History: Adenoidectomy Additional Past Surgical History / Comment(s): testicular surg Past Anesthesia/Blood Transfusion Reactions: No Reported Reaction Additional Past Anesthesia/Blood Transfusion Reaction / Comment(s): never received blood in the past Past Psychological History: Anxiety Smoking Status: Never smoker Past Alcohol Use History: None Reported Past Drug Use History: None Reported - Past Family History Father Family Medical History: Cancer General Exam Limitations: no limitations General appearance: alert, in no apparent distress Head exam: Present: atraumatic, normocephalic, normal inspection Eye exam: Present: normal appearance, PERRL, EOMI. Absent: scleral icterus, conjunctival injection, periorbital swelling ENT exam: Present: normal exam, mucous membranes moist Neck exam: Present: normal inspection. Absent: tenderness, meningismus, lymphadenopathy Respiratory exam: Present: normal lung sounds bilaterally. Absent: respiratory distress, wheezes, rales, rhonchi, stridor Cardiovascular Exam: Present: regular rate, normal rhythm, normal heart sounds. Absent: systolic murmur, diastolic murmur, rubs, gallop, clicks GI/Abdominal exam: Present: soft, normal bowel sounds. Absent: distended, tenderness, guarding, rebound, rigid Extremities exam: Present: normal inspection, full ROM, normal capillary refill. Absent: tenderness, pedal edema, joint swelling, calf tenderness Neurological exam: Present: alert, oriented X3, CN II-XII intact Psychiatric exam: Present: normal affect, normal mood Skin exam: Present: warm, dry, intact, normal color. Absent: rash Course Vital Signs 02/05/21 16:04 Temperature 97.9 F Pulse Rate 70 Respiratory 19 Rate Blood Pressure 160/99 O2 Sat by Pulse 100 Oximetry Medical Decision Making - Medical Decision Making 25-year-old male complaining of nausea vomiting for one day. Basic labs, 1 L normal saline, 4 mg of Zofran ordered. Labs unremarkable. Case discussed with Dr. Alvarez, patient can be discharged home with follow-up outpatient. - Lab Data Result diagrams: 02/05/21 16:27 02/05/21 16:27 Lab Results 02/05/21 02/05/21 Range/Units 16:27 16:27 WBC 14.0 H (3.8-10.6) k/uL RBC 5.32 (4.30-5.90) m/uL Hgb 16.2 (13.0-17.5) gm/dL Hct 45.0 (39.0-53.0) % MCV 84.5 (80.0-100.0) fL MCH 30.5 (25.0-35.0) pg MCHC 36.1 (31.0-37.0) g/dL RDW 12.4 (11.5-15.5) % Plt Count 359 (150-450) k/uL MPV 8.0 Neutrophils % 68 % Lymphocytes % 23 % Monocytes % 7 % Eosinophils % 1 % Basophils % 0 % Neutrophils # 9.5 H (1.3-7.7) k/uL Lymphocytes # 3.3 (1.0-4.8) k/uL Monocytes # 1.0 (0-1.0) k/uL Eosinophils # 0.1 (0-0.7) k/uL Basophils # 0.0 (0-0.2) k/uL Sodium 140 (137-145) mmol/L Potassium 4.3 (3.5-5.1) mmol/L Chloride 101 (98-107) mmol/L Carbon Dioxide 23 (22-30) mmol/L Anion Gap 16 mmol/L BUN 18 (9-20) mg/dL Creatinine 0.85 (0.66-1.25) mg/dL Est GFR (CKD-EPI)AfAm >90 (>60 ml/min/1.73 sqM) Est GFR (CKD-EPI)NonAf >90 (>60 ml/min/1.73 sqM) Glucose 135 H (74-99) mg/dL Calcium 10.6 H (8.4-10.2) mg/dL Total Bilirubin 0.9 (0.2-1.3) mg/dL AST 25 (17-59) U/L ALT 20 (4-49) U/L Alkaline Phosphatase 86 (38-126) U/L Total Protein 8.9 H (6.3-8.2) g/dL Albumin 5.4 H (3.5-5.0) g/dL Disposition Clinical Impression: Intractable vomiting, Nausea & vomiting Disposition: HOME SELF-CARE Condition: Stable Instructions (If sedation given, give patient instructions): Acute Nausea and Vomiting (ED) Additional Instructions: Please return to the Emergency Department if symptoms worsen or any other concerns. Follow-up with primary care in 1-3 days. Continue to follow-up with [facility] dean. Avoid smoking marijuana as it can cause nausea and vomiting. Increase oral fluid intake to stay hydrated. Is patient prescribed a controlled substance at d/c from ED?: No Referrals: Arron Ga DO [Primary Care Provider] - 1-2 days Time of Disposition: 17:40
[2021-02-05 17:00] LABS: Basophils % (A) 0 %; Eosinophils # (A) 0.1 k/uL (0-0.7); Eosinophils % (A) 1 %; HGB 16.2 gm/dL (13.0-17.5); Lymphocytes # (A) 3.3 k/uL (1.0-4.8); Lymphocytes % (A) 23 %; MCH 30.5 pg (25.0-35.0); MCHC 36.1 g/dL (31.0-37.0); MCV 84.5 fL (80.0-100.0); Monocytes % (A) 7 %; Neutrophils # (A) 9.5 k/uL (1.3-7.7); Neutrophils % (A) 68 %; Platelet Count 359 k/uL (150-450); RBC 5.32 m/uL (4.30-5.90); RDW 12.4 % (11.5-15.5)
[2021-02-05 17:15] LABS: ALT 20 U/L (4-49); AST 25 U/L (17-59); African American GFR (CKD) >90 (>60 ml/min/1.73 sqM); Albumin 5.4 g/dL (3.5-5.0); Alkaline Phosphatase 86 U/L (38-126); Anion Gap 16 mmol/L; Blood Urea Nitrogen 18 mg/dL (9-20); Calcium 10.6 mg/dL (8.4-10.2); Carbon Dioxide 23 mmol/L (22-30); Chloride 101 mmol/L (98-107); Glucose 135 mg/dL (74-99); Non-African American GFR(CKD) >90 (>60 ml/min/1.73 sqM); Potassium 4.3 mmol/L (3.5-5.1); Sodium 140 mmol/L (137-145); Total Bilirubin 0.9 mg/dL (0.2-1.3); Total Protein 8.9 g/dL (6.3-8.2)
[2021-02-05 18:09] VITALS: BP 143/73; PULSE 74; RESP 18; TEMP 98.2
== END 2021-02-05 18:08 | disposition home or self-care (01) ==
LOC: EC 16:03
DX: R11.2 Nausea with vomiting, unspecified (principal); R10.9 Unspecified abdominal pain; F41.9 Anxiety disorder, unspecified; I10 Essential (primary) hypertension; J45.909 Unspecified asthma, uncomplicated; K21.9 Gastro-esophageal reflux disease without esophagitis
CPT/HCPCS: 36415; 80053; 85025; 96361; 96374; 99284

== ENCOUNTER 2021-02-06 07:09 | Emergency (ER) | payer BC, OTHER ==
[2021-02-06 07:16] VITALS: RESP 18; TEMP 98.8
[2021-02-06] MEDS ORDERED: PANTOPRAZOLE 40 MG/10 ML VIAL IVP STA (07:22)
[2021-02-06] MEDS ORDERED: METOCLOPRAMIDE 5 MG/ML 2 ML VIAL IVP STA (07:22)
[2021-02-06] MEDS ORDERED: SODIUM CHLORIDE 0.9% 2,000 ML IV ONE (07:22)
[2021-02-06] MEDS ORDERED: diphenhydrAMINE 50 MG/ML 1 ML VIAL IVP STA (07:23)
--- NOTE | 2021-02-06 07:25 | ED ---
General Adult HPI - General Chief complaint: Nausea/Vomiting/Diarrhea Stated complaint: nausea, vomiting Time Seen by Provider: 02/06/21 07:11 Source: patient, EMS, RN notes reviewed, old records reviewed Mode of arrival: EMS - History of Present Illness Initial comments: Patient is a 25-year-old male who presents emergency department for the fourth time this month with complaints of nausea and vomiting. Patient reports that he's been unable to tolerate his normal medications a clean his hypertensive medication for the past 3 days. Patient states that he did smoke marijuana on Monday but denies any vomiting associated with smoking marijuana. Patient states that he has been evaluated including abdominal ultrasound which was negative for acute process as well as had an upper endoscopy showing gastritis with no other significant abnormalities. Patient states that he was in the emergency department yesterday for similar complaints was given fluids and discharged home. He states he had no nausea medication at home to help manage his symptoms. - Related Data Home Medications Medication Instructions Recorded Confirmed Sertraline [Zoloft] 100 mg PO DAILY 01/20/21 01/26/21 hydrOXYzine HCL 25 mg PO TID PRN 01/20/21 01/26/21 lisinopriL 40 mg PO DAILY 01/20/21 01/26/21 Previous Rx's Medication Instructions Recorded Omeprazole [PriLOSEC] 20 mg PO AC-BID #60 cap 01/21/21 Famotidine [Pepcid] 20 mg PO BID #14 tablet 02/06/21 Metoclopramide [Reglan] 10 mg PO ACHS #15 tab 02/06/21 Allergies Allergy/AdvReac Type Severity Reaction Status Date / Time adhesive tape AdvReac Rash/Hives Verified 02/05/21 16:08 Review of Systems ROS Statement: Those systems with pertinent positive or pertinent negative responses have been documented in the HPI. ROS Other: All systems not noted in ROS Statement are negative. Past Medical History Past Medical History: Asthma, GERD/Reflux, Hypertension Additional Past Medical History / Comment(s): HIATAL HERNIA, inpt 01/20-01/21/21 for vomiting and elevated bs History of Any Multi-Drug Resistant Organisms: None Reported Past Surgical History: Adenoidectomy Additional Past Surgical History / Comment(s): testicular surg Past Anesthesia/Blood Transfusion Reactions: No Reported Reaction Additional Past Anesthesia/Blood Transfusion Reaction / Comment(s): never received blood in the past Past Psychological History: Anxiety Smoking Status: Never smoker Past Alcohol Use History: None Reported Past Drug Use History: Marijuana - Past Family History Father Family Medical History: Cancer General Exam - General Exam Comments Initial Comments: Is a 25-year-old male. Alert and oriented. No acute distress. General appearance: alert, in no apparent distress Head exam: Present: atraumatic, normocephalic, normal inspection Eye exam: Present: normal appearance, PERRL, EOMI. Absent: scleral icterus, conjunctival injection, periorbital swelling ENT exam: Present: normal exam, mucous membranes moist Neck exam: Present: normal inspection. Absent: tenderness, meningismus, lymphadenopathy Respiratory exam: Present: normal lung sounds bilaterally. Absent: respiratory distress, wheezes, rales, rhonchi, stridor Cardiovascular Exam: Present: regular rate, normal rhythm, normal heart sounds. Absent: systolic murmur, diastolic murmur, rubs, gallop, clicks GI/Abdominal exam: Present: soft, tenderness (epigastric pain), normal bowel jessica nds. Absent: distended, guarding, rebound, rigid Extremities exam: Present: normal inspection, full ROM, normal capillary refill. Absent: tenderness, pedal edema, joint swelling, calf tenderness Back exam: Present: normal inspection Neurological exam: Present: alert, oriented X3, CN II-XII intact Psychiatric exam: Present: normal affect, normal mood Skin exam: Present: warm, dry, intact, normal color. Absent: rash Course Vital Signs 02/06/21 07:12 Temperature 98.8 F Pulse Rate 65 Respiratory 18 Rate Blood Pressure 147/91 O2 Sat by Pulse 100 Oximetry - Reevaluation(s) Reevaluation #1: 02/06/21 08:00 Retired Patient is resting comfortably in bed. He states he is feeling better after IV medication. Patient will continue to receive fluids. We'll reevaluate after fluid bolus. Medical Decision Making - Medical Decision Making Decision is a 25-year-old male presents with nausea and vomiting. Patient has been elevated yesterday for similar complaints. Patient was given 2 L bolus Reglan Benadryl Protonix. On reevaluation he is feeling much better. He denies any skin consistent abdominal pain. I did advise the Patient to avoid smoking marijuana since symptoms could be related to cyclic vomiting syndrome with marijuana use. Patient is anxious to be discharged and states he feels well after fluid bolus. We'll discharge the Patient with antacid medication as well as nausea medication. Discussed return parameters. - Lab Data Result diagrams: 02/06/21 07:31 02/06/21 07:31 Lab Results 02/06/21 02/06/21 02/06/21 Range/Units 07:29 07:31 07:31 WBC 10.3 (3.8-10.6) k/uL RBC 4.94 (4.30-5.90) m/uL Hgb 14.6 (13.0-17.5) gm/dL Hct 41.7 (39.0-53.0) % MCV 84.5 (80.0-100.0) fL MCH 29.6 (25.0-35.0) pg MCHC 35.1 (31.0-37.0) g/dL RDW 11.9 (11.5-15.5) % Plt Count 296 (150-450) k/uL MPV 7.8 Neutrophils % 71 % Lymphocytes % 22 % Monocytes % 6 % Eosinophils % 1 % Basophils % 0 % Neutrophils # 7.3 (1.3-7.7) k/uL Lymphocytes # 2.3 (1.0-4.8) k/uL Monocytes # 0.6 (0-1.0) k/uL Eosinophils # 0.1 (0-0.7) k/uL Basophils # 0.0 (0-0.2) k/uL Sodium 139 (137-145) mmol/L Potassium 3.8 (3.5-5.1) mmol/L Chloride 108 H (98-107) mmol/L Carbon Dioxide 18 L (22-30) mmol/L Anion Gap 13 mmol/L BUN 17 (9-20) mg/dL Creatinine 0.85 (0.66-1.25) mg/dL Est GFR (CKD-EPI)AfAm >90 (>60 ml/min/1.73 sqM) Est GFR (CKD-EPI)NonAf >90 (>60 ml/min/1.73 sqM) Glucose 145 H (74-99) mg/dL Calcium 9.3 (8.4-10.2) mg/dL Total Bilirubin 0.9 (0.2-1.3) mg/dL AST 23 (17-59) U/L ALT 17 (4-49) U/L Alkaline Phosphatase 68 (38-126) U/L Total Protein 7.2 (6.3-8.2) g/dL Albumin 4.3 (3.5-5.0) g/dL Lipase 170 (23-300) U/L Urine Color Yellow Urine Appearance Clear (Clear) Urine pH 6.0 (5.0-8.0) Ur Specific [place] 1.029 (1.001-1.035) Urine Protein 1+ H (Negative) Urine Glucose (UA) Negative (Negative) Urine Ketones 2+ H (Negative) Urine Blood Negative (Negative) Urine Nitrite Negative (Negative) Urine Bilirubin Negative (Negative) Urine Urobilinogen 2.0 (<2.0) mg/dL Ur Leukocyte Esterase Negative (Negative) Urine RBC <1 (0-5) /hpf Urine WBC 3 (0-5) /hpf Urine Mucus Many H (None) /hpf Disposition Clinical Impression: Nausea & vomiting Disposition: HOME SELF-CARE Condition: Good Instructions (If sedation given, give patient instructions): Acute Nausea and Vomiting (ED) Additional Instructions: Patient advised to avoid smoking marijuana. He is medication as prescribed. Follow-up this week with her primary care physician. Return to the ED if any alarming signs or symptoms occur. Prescriptions: Famotidine [Pepcid] 20 mg PO BID #14 tablet Metoclopramide [Reglan] 10 mg PO ACHS #15 tab Is patient prescribed a controlled substance at d/c from ED?: No Referrals: Arron Ga DO [Primary Care Provider] - 1-2 days Time of Disposition: 09:02
[2021-02-06 07:44] LABS: Basophils % (A) 0 %; Eosinophils # (A) 0.1 k/uL (0-0.7); Eosinophils % (A) 1 %; HCT 41.7 % (39.0-53.0); HGB 14.6 gm/dL (13.0-17.5); Lymphocytes # (A) 2.3 k/uL (1.0-4.8); Lymphocytes % (A) 22 %; MCH 29.6 pg (25.0-35.0); MCHC 35.1 g/dL (31.0-37.0); MCV 84.5 fL (80.0-100.0); Mean Platelet Volume 7.8; Monocytes # (A) 0.6 k/uL (0-1.0); Monocytes % (A) 6 %; Neutrophils # (A) 7.3 k/uL (1.3-7.7); Neutrophils % (A) 71 %; Platelet Count 296 k/uL (150-450); RBC 4.94 m/uL (4.30-5.90); RDW 11.9 % (11.5-15.5); WBC 10.3 k/uL (3.8-10.6)
[2021-02-06 07:53] LABS: ALT 17 U/L (4-49); AST 23 U/L (17-59); African American GFR (CKD) >90 (>60 ml/min/1.73 sqM); Albumin 4.3 g/dL (3.5-5.0); Alkaline Phosphatase 68 U/L (38-126); Anion Gap 13 mmol/L; Blood Urea Nitrogen 17 mg/dL (9-20); Calcium 9.3 mg/dL (8.4-10.2); Carbon Dioxide 18 mmol/L (22-30); Chloride 108 mmol/L (98-107); Glucose 145 mg/dL (74-99); Lipase 170 U/L (23-300); Non-African American GFR(CKD) >90 (>60 ml/min/1.73 sqM); Sodium 139 mmol/L (137-145); Total Bilirubin 0.9 mg/dL (0.2-1.3); Total Protein 7.2 g/dL (6.3-8.2)
[2021-02-06 08:01] LABS: Appearance,Urine Clear (Clear); Bilirubin,Urine Negative (Negative); Blood,Urine Negative (Negative); Color,Urine Yellow; Glucose,Urine (UA) Negative (Negative); Ketones,Urine 2+ (Negative); Leukocyte Esterase,Urine Negative (Negative); Mucus,Urine Many /hpf; Nitrite,Urine Negative (Negative); Protein,Urine 1+ (Negative); RBC,Urine <1 /hpf (0-5); Specific Gravity,Urine 1.029 (1.001-1.035); WBC,Urine 3 /hpf (0-5)
[2021-02-06 08:49] LABS: Potassium 3.8 mmol/L (3.5-5.1)
[2021-02-06 09:23] VITALS: BP 127/82; PULSE 70
== END 2021-02-06 09:23 | disposition home or self-care (01) ==
LOC: EC 07:09
DX: R11.2 Nausea with vomiting, unspecified (principal); F41.9 Anxiety disorder, unspecified; F12.90 Cannabis use, unspecified, uncomplicated; J45.909 Unspecified asthma, uncomplicated; K21.9 Gastro-esophageal reflux disease without esophagitis; I10 Essential (primary) hypertension
CPT/HCPCS: 36415; 80053; 83690; 85025; 81001; 99284; 96374; 96375; 96361; J1200; J2765; C9113